=== PATIENT | female | born 1980 | race Two or more races ===

== ENCOUNTER 2025-03-28 12:51 | Outpatient (CLI) | payer BC | END 2025-03-28 12:52 | disposition home or self-care (01) | LOC: CSHMAMMO 12:51 | PROVIDERS: ATTEND Family Medicine | DX: Z12.31 Encounter for screening mammogram for malignant neoplasm of breast (principal); Z80.3 Family history of malignant neoplasm of breast; Z98.890 Other specified postprocedural states; Z98.82 Breast implant status; N64.89 Other specified disorders of breast; R92.333 Mammographic heterogeneous density, bilateral breasts | CPT/HCPCS: 77063; 77067 ==